=== PATIENT | male | born 2005 | race Caucasian/White ===

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

== ENCOUNTER 2025-01-09 06:50 | Outpatient (REF) | payer OTHER, SELFPAY ==
--- NOTE | ~2025-01-09 | XR_ITS ---
XR KNEE CHRIS 1V HISTORY: Patellar tendinopathy, right knee. COMPARISON: 12/23/2024. TECHNIQUE: Patellofemoral view of each knee. FINDINGS: RIGHT KNEE: No fracture, dislocation, or suspicious bone lesion. Normal patellar alignment. No abnormal patellar tilt. Soft tissues appear normal. LEFT KNEE: No fracture, dislocation, or suspicious bone lesion. Normal patellar alignment. No abnormal patellar tilt. Soft tissues appear normal. XR/XR Knee Chris 1or 2V IMPRESSION: Normal bilateral patellofemoral views. Electronically signed by: Terrence You MD 01/09/2025 01:46 PM EDT
--- OUTSIDE RECORDS SUMMARY | 2025-01-13 06:53 | XMS_ITS | Clinical Summary ---
Author Organization [facility] Address [address] [place] [address] Care Team Providers Care Monitoring Specialist Name Role Phone Mendez French MD Primary Care Provider [phone] Allergies No known active allergies Medications No [...] OUT OF STATE - HMO Care Teams Monitoring Specialist Relationship Specialty Start Date End Date Mendez French MD [address] [place] [id number] PCP - General Pediatric, General 11/01/20
--- OUTSIDE RECORDS SUMMARY | 2025-01-13 06:53 | XMS_ITS | Encounter Summary ---
Author Organization [facility] Address [address] [place] [address] Phone Care Team Providers Care Entertainment & Media Correspondent Name Role Phone Mendez French MD Primary Care Provider [phone] Encounter Details Date Type Department Care Team (Late st Contact Info) Description 07/25/2009 Documentation [facility] [place] Family Medicine [address] [place] [address] Family Medicine, Physician [address] [place], [place] [id number] Social History Tobacco Use Types Packs/Day Years [...] on filedocumented in this encounter Care Teams Entertainment & Media Correspondent Relationship Specialty Start Date End Date Mendez French MD [address] [place] [address] PCP - General Pediatrics 05/23/18 11/10/24 documented as of this encounter
== END 2025-01-09 06:51 | disposition home or self-care (01) ==
LOC: HO.HOSX 06:50
PROVIDERS: Visit Provider Physician Assistant
DX: M76.51 Patellar tendinitis, right knee (principal); M76.52 Patellar tendinitis, left knee; M22.41 Chondromalacia patellae, right knee; M22.42 Chondromalacia patellae, left knee
CPT/HCPCS: 73560

== ENCOUNTER 2025-01-09 13:27 | Outpatient (AMB) | payer OTHER, SELFPAY ==
--- OUTSIDE RECORDS SUMMARY | 2025-01-09 13:29 | XMS_ITS | Encounter Summary ---
Author Organization [facility] Address [address] [place] [address] Phone Care Team Providers Care Sustainable Landscape Architect Name Role Phone Mendez French MD Primary Care Provider [phone] Encounter Details Date Type Department Care Team (Late st Contact Info) Description 07/25/2009 Documentation [facility] [place] [address] [place] [address] Family Medicine, Physician [address] [place], [place] [id number] Social History Tobacco Use Types Packs/Day Years [...] on filedocumented in this encounter Care Teams Sustainable Landscape Architect Relationship Specialty Start Date End Date Mendez French MD [address] [place] [address] PCP - General Pediatrics 05/23/18 11/10/24 documented as of this encounter
--- OUTSIDE RECORDS SUMMARY | 2025-01-09 13:29 | XMS_ITS | Clinical Summary ---
Author Organization [facility] Address [address] [place] [address] Care Team Providers Care Belt Repairer Name Role Phone Mendez French MD Primary Care Provider [phone] Allergies No known active allergies Medications No [...] 93 11/01/2020 2:35 PM EDT Temperature 36.7 C (98.1 F) 11/01/2020 2:35 PM EDT Respiratory Rate 16 11/01/2020 2:35 PM EDT [...] OUT OF STATE - HMO Care Teams Belt Repairer Relationship Specialty Start Date End Date Mendez French MD [address] [place] [id number] PCP - General Pediatric, General 11/01/20
--- NOTE | 2025-01-09 13:35 | A.OFFVIS_ITS ---
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 Patient was referred by his PCP who also ordered Lyme and rheumatoid testing, he was given an Rx for Meloxicam. Patient states that about four years ago is when the B/L knee pain started. He added that last month 12/25 is when the knee pain started to flair up, mild numbness and tingling down to both feet. Patient reports that he does elevate his legs but only for a short time due to the dullache. 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 He denies injury, he c/o anteromedial joint pain . He recently noticed pain with stairs. He feels some weakness in the legs with descending stairs. 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 He does have tenderness bilaterally over the lateral retropatellar aspect of the knee. He has full range of motion with significant crepitus. Calf supple and nontender neurovascularly intact. Results Reviewed Results Reviewed: X-rays of both knees obtained in the office today and reviewed by me are negative for any acute or chronic abnormalities. Assessment & Plan Assessment & Plan (1) Patellar tendinitis of both knees: Code(s): M76.51 - Patellar tendinitis, right knee; M76.52 - Patellar tendinitis, left knee Category: Medical (2) Chondromalacia of both patellae: Code(s): M22.41 - Chondromalacia patellae, right knee; M22.42 - Chondromalacia patellae, left knee Category: Medical Plan We discussed options today which includes physical therapy to work on strengthening exercises and conditioning of the posterior chain. He was also fit for bilateral patellar stabilizing brace given the lateralization of the patella with range of motion. I did discuss with him modifications of activities to help offset his discomfort. If symptoms persist or worsening contact our office otherwise she will follow up as needed. Orders: Orders XR Knee Chris 1or 2V Today M76.51 - Patellar tendinitis, right knee, M76.52 - Patellar tendinitis, left knee PT Evaluation and Treatment Today M22.41 - Chondromalacia patellae, right knee, M22.42 - Chondromalacia patellae, left knee, M76.51 - Patellar tendinitis, right knee, M76.52 - Patellar tendinitis, left knee Coding Level of Care Code New Pt Level 3 (26537) Complex EM visit Add On G2211 Diagnoses Patellar tendinitis of both knees M76.51; M76.52 Chondromalacia of both patellae M22.41; M22.42
== END 2025-01-09 14:52 | disposition home or self-care (01) ==
LOC: HO.HOS 13:27
PROVIDERS: PCP Internal Medicine; Visit Provider Physician Assistant
DX: M76.51 Patellar tendinitis, right knee (principal); M76.52 Patellar tendinitis, left knee; M22.41 Chondromalacia patellae, right knee; M22.42 Chondromalacia patellae, left knee
CPT/HCPCS: 99203

== ENCOUNTER → 2025-01-09 13:29 | Outpatient (BNV) | payer OTHER, SELFPAY | PROVIDERS: Visit Provider Radiology Diagnostic Radiology | DX: M76.50 Patellar tendinitis, unspecified knee (principal) | CPT/HCPCS: 73560 ==

== ENCOUNTER 2025-07-01 11:23 | Outpatient (AMB) | payer OTHER, SELFPAY ==
--- NOTE | 2025-07-01 11:25 | A.OFFPC_ITS ---
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 Saw ortho, had xrays. bottom medial knee pain. 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 If it is severe will take ibuprofen. No particular injury. Crouching to standing hurts, feel weak. Sometimes with prolonged walking. Started with 4-5 years ago. No visible swelling or redness. Click in collar bone shoulder area-stable without pain Dental UTD-appt next month Declines flu vaccination ROS see HPI PHYSICAL EXAM: GENERAL: Alert and oriented x 3. NAD EYES: EOMI. Anicteric. HENT: Moist mucous membranes. No scleral icterus. No cervical lymphadenopathy. LUNGS: Clear to auscultation bilaterally. CARDIOVASCULAR: Regular rate and rhythm. No murmur. No JVD. ABDOMEN: Soft, non-tender +bs KNEES: normal inspection, mild crepitus, no laxity, no pain with valgus, varus stress EXTREMITIES: No edema. Non-tender. SKIN: atypical moles back NEUROLOGIC: No focal neurological deficits. CN II-XII grossly intact PSYCHIATRIC: Cooperative. 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 1. Little interest or pleasure in doing things: several days 2. Feeling down, depressed, or hopeless: not at all 3. Trouble falling or staying asleep, or sleeping too much: nearly every day 4. Feeling tired or having little energy: several days 5. Poor appetite or overeating: several days 6. Feeling bad about yourself - or that you are a failure or have let yourself or your family down: not at all 7. Trouble concentrating on things, such as reading the newspaper or watching television: not at all 8. Moving or speaking so slowly that other people could have noticed. Or the opposite - being so fidgety or restless that you have been moving around a lot more than usual: not at all 9. Thoughts that you would be better off or of hurting yourself in some way: not at all Total score: 6 Depression Screening Interpretation: Positive Depression Screening Follow-up: Declines treatment Depression Screening Done: Yes 22103 - PHQ-9 Billing: Yes Source: Developed by Drs. Mendez Urias, Eva Chavez, Sushil Singer and colleagues, with an educational estee from [employer]. Thrive Questionnaire Date Thrive assessed: 07/01/25 I am a: Patient What is your living situation today?: I have a steady place to live Within the past 12 months, did the food you bought not last and you didn't have the money to get more?: Never true Within the past 12 months, did you worry whether your food would run out before you got money to buy more?: Never true Do you have trouble paying for medicines?: No Do you have trouble getting transportation to medical appointments?: No Do you have trouble paying your heating and electricity bill?: No Do you have trouble taking care of your child, family member or friend?: No Do you have trouble with day-to-day activities such as bathing, preparing meals, shopping, managing finances, etc.?: No Are you currently unemployed and looking for a job?: Yes Are you interested in more education?: Yes Please select the resources that you would like help with: Job search/training and Education Currently or been in a relationship where the following occur: No concerns reported THRIVE Score: 0 AUDIT C Alcohol Use Questionnaire (AUDIT-C) 1. How often do you have a drink containing alcohol?: Monthly or less 2. How many drinks containing alcohol do you have on a typical day when you are drinking?: 1 or 2 3. How often do you have six or more drinks on one occasion?: Less than monthly Total Score: 2 Score Reviewed/Action Taken: Yes KENNEDY-7 AMB Questionnaire KENNEDY-7 Date KENNEDY - 7 assessed: 07/01/25 Feeling nervous, anxious, or on edge: 1 = Several days Not being able to stop or control worryin = Several days Worrying too much about different things: 1 = Several days Trouble relaxin = Not at all Being so restless that it is hard to sit still: 0 = Not at all Becoming easily annoyed or irritable: 0 = Not at all Feeling afraid as if something awful might happen: 0 = Not at all Total KENNEDY-7 score (0-4 normal; 5-9 mild; 10-14 moderate; 15-21 severe): 3 Source: Developed by Drs. Mendez Urias, Eva Chavez, Sushil Singer and colleagues, with an educational estee from [employer]. KENNEDY-7 Assessment Billing KENNEDY-7 Assessment Tool: KENNEDY-7 Assessment 04256 Physical exam (Primary Care) Vital Signs: Last Vital Signs Temp 98.2 F 07/01/25 11:33 Pulse 105 H 07/01/25 11:33 Resp 16 07/01/25 11:33 Pulse Ox 98 07/01/25 11:33 Oxygen Delivery Method Room Air 07/01/25 11:33 BMI result Body Mass Index 24.0 Tobacco/Smoking Status: Tobacco use Status Tobacco use date assessed 07/01/25 07/01/25 11:39 Patient Tobacco Use Status Never used Tobacco 07/01/25 11:33 e-Cigarette/Vaping Use Currently Using 07/01/25 11:33 PHQ-9: PHQ-9 Score PHQ-9: Total score 6 07/01/25 11:45 Depression Screening Interpretation: Positive Depression Screening Follow-up: Declines treatment Thrive Assessment: Date of Thrive Assessment Date Thrive assessed 07/01/25 07/01/25 11:39 Currently or been in a relationship where the following occur: No concerns reported Coding Level of Care Code Est Pt Prev Care 18-39y(87370) Diagnoses Physical exam Z00.00 Chronic pain of both knees M25.561; M25.562; G89.29 Chronicity: chronic Additional Codes KENNEDY-7 Assessment Billing - KENNEDY-7 Assessment Tool: KENNEDY-7 Assessment 20057 ([id number]) PHQ-9 - 99459 - PHQ-9 Billing: Yes ([id number]) Assessment & Plan Assessment & Plan (1) Physical exam: Code(s): Z00.00 - Encounter for general adult medical examination without abnormal findi ngs (2) Bilateral knee pain: Code(s): M25.561 - Pain in right knee; M25.562 - Pain in left knee Category: Medical Qualifiers: Chronicity: chronic Qualified Code(s): M25.561 - Pain in right knee; M25.562 - Pain in left knee; G89.29 - Other chronic pain Plan Physical exam Interval history reviewed Preventive measures for age discussed Declines STI screening. Labs are ordered. Declines flu shot Bilateral knee pain is stable Orders: Referrals Dermatology Referral D22.9 - Melanocytic nevi, unspecified
[2025-07-01 11:33] VITALS: PULSE 105; RESP 16; TEMP 36.8; O2SAT 98; BMI 24.0
--- OUTSIDE RECORDS SUMMARY | 2025-07-01 15:26 | XMS_ITS | Clinical Summary ---
Author Organization [facility] Address [address] [place] [address] Care Team Providers Care Lens Polisher Hand Name Role Phone Mendez French MD Primary Care Provider [phone] Allergies No known active allergies Medications No [...] of 3 - 19+ 3-dose series) 01/19/2024 Influenza Vaccine 01/31/2025 COVID-19 Vaccine ( - 2024-2 6 season) 2025 Pneumococcal Vaccine: Pediat sudeep (0-5 Years) and At-Risk Patients (6 to 49 Years) Aged Out No longer eligible b ased on patient's age to complete this topic Insurance BLUE CROSS OUT OF STATE - HMO Care Teams Lens Polisher Hand Relationship Specialty Start Date End Date Mendez French MD [address] [place] [id number] PCP - General Pediatric, General 11/01/20
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
--- OUTSIDE RECORDS SUMMARY | 2025-07-01 15:26 | XMS_ITS | Encounter Summary ---
Author Organization [facility] Address [address] [place] [address] Phone Care Team Providers Care Measurer Name Role Phone Mendez French MD Primary Care Provider [phone] Encounter Details Date Type Department Care Team (Late st Contact Info) Description 07/25/2009 Documentation [facility] [place] [address] [place] [address] Family Medicine, Physician [address] [place], [place] [id number] Social History Tobacco Use Types Packs/Day Years [...] on filedocumented in this encounter Care Teams Measurer Relationship Specialty Start Date End Date Mendez French MD [address] [place] [address] PCP - General Pediatrics 05/23/18 11/10/24 documented as of this encounter
--- OUTSIDE RECORDS SUMMARY | 2025-07-01 15:26 | XMS_ITS | Encounter Summary ---
Author Organization [facility] Address [address] [place] [phone] Phone Care Team Providers Care Marketing Writer Name Role Phone Mendez French MD Primary Care Provider [phone] Encounter Details Date Type Department Care Team (Late st Contact Info) Description 11/19/2017 Conversion Encounter [facility] [address] [place] [address] Social History Tobacco Use Types Packs/Day Years [...] on filedocumented in this encounter Care Teams Marketing Writer Relationship Specialty Start Date End Date Mendez French MD [address] [place] [address] PCP - General Pediatrics 05/23/18 11/10/24 documented as of this encounter
== END 2025-07-01 11:55 | disposition home or self-care (01) ==
LOC: HO.HMCFM 11:24
PROVIDERS: PCP Internal Medicine; Visit Provider Internal Medicine
DX: Z00.00 Encounter for general adult medical examination without abnormal findings (principal); M25.561 Pain in right knee; M25.562 Pain in left knee; G89.29 Other chronic pain

== ENCOUNTER → 2025-07-01 11:23 | Outpatient (BNVA) | payer OTHER, SELFPAY | PROVIDERS: PCP Internal Medicine; Visit Provider Internal Medicine | DX: Z00.00 Encounter for general adult medical examination without abnormal findings (principal); M25.561 Pain in right knee; M25.562 Pain in left knee; G89.29 Other chronic pain; D22.5 Melanocytic nevi of trunk; Z13.31 Encounter for screening for depression; Z13.39 Encounter for screening examination for other mental health and behavioral disorders | CPT/HCPCS: 96127 ==